=== PATIENT | male | born 1960 | race Caucasian/White ===

== ENCOUNTER 2020-04-03 08:04 | Outpatient (CLI) | payer BC, SELFPAY ==
--- NOTE | ~2020-04-03 | XR_ITS ---
EXAMINATION: XR barium swallow DATE: 04/03/2020 08:45 INDICATION: Dysphagia. TECHNIQUE: The patient drank thick barium, gas-producing crystals, and thin barium. Fluoroscopic spot radiographs of the hypopharynx and esophagus were obtained. Fluoroscopy exposure time was 2.4 minut es. A total of 1243 fluoroscopic images were recorded. COMPARISON: None. FINDINGS: The pharynx is symmetric and without evidence of mass lesion or mucosal irregularity. The e sophagus is normal without mass or stricture. Esophageal motility is normal. There is no hiatal herni a. There was no gastroesophageal reflux with provocative maneuvers. IMPRESSION: 1. Normal esophagram. Reviewed, dictated and finalized at location A. IMPRESSION: 1. Normal esophagram.
== END 2020-04-03 08:05 | disposition home or self-care (01) ==
PROVIDERS: PCP Family Medicine; Visit Provider Otolaryngology
DX: R13.10 Dysphagia, unspecified (principal)
CPT/HCPCS: 74220

== ENCOUNTER → 2020-06-08 13:05 | Outpatient (CLI) | payer BC, SELFPAY ==
--- NOTE | ~2020-06-08 | XR_ITS ---
EXAMINATION: XR abdomen/kub 1V EXAM DATE: 06/08/2020 13:24 INDICATION: Right flank pain for 3 days. History of kidney stones. 2 hernia repairs. TECHNIQUE: Frontal projection(s) of the abdomen for interpretation. There is no prior study for tracy sinclair. FINDINGS: There is expected amount of colonic stool and gas. No small bowel dilation, nonobstructiv e bowel gas pattern. Calcifications in the pelvis are believed to be phleboliths. No calcifications identified over the renal contours. There is no organomegaly suspected. Mild to moderate left hip osteoarthritis and lumbar spondylosis. Total right hip replacement hardware. Some abdominal wall mesh anchors. IMPRESSION: Unremarkable abdomen x-ray exam. Reviewed, dictated and finalized at location A.
== END ==
PROVIDERS: Visit Provider Nurse Practitioner Family
DX: R10.9 Unspecified abdominal pain (principal)
CPT/HCPCS: 74018

== ENCOUNTER 2021-07-03 07:18 | Outpatient (RCR) | payer BC, SELFPAY ==
--- NOTE | 2021-07-03 08:30 | PTOPEVAL ---
PHYSICAL THERAPY EVALUATION AND PLAN OF CARE Thank you for referring Celio Wagner Jr. to [facility].? The patient is scheduled to be seen for therapy? a follow-up in 5 weeks. Due to patient's work schedule he was not able to make more appointments at this time, but he was instructed to call if symptoms do no improve in 1-2 weeks or if he has any questions about HEP. Please review, sign, date and return this plan of care FRANKLIN. I agree with and certify that the following plan of care is medically necessary. Referring Physician Date Attending Provider: Adan Chaves MD Evaluation Outpatient Past Medical History Cardiovascular History Hx Hypercholesterolemia Yes Hx Hypertension Yes Respiratory History Hx Sleep Apnea Yes: cpap Gastrointestinal History Hx Gastroesophageal Reflux Disease Yes Hx Hernia Yes: umbilical 2014 Hx Polyps Yes: colon 2019 Musculoskeletal History Hx Back Pain Yes: lumbar stenosis Hx Joint Replacement Yes: right total hip 2012 Hx Other Musculoskeletal Disorders Yes: neck stenosis Endocrine History Hx Diabetes Yes: takes po meds HEENT History Hx Other HEENT Disorders Yes: swollen tonsils Integumentary History Hx Skin Disorders No Significant History Reproductive History Hx Reproductive Disorders No Significant History Psychosocial History Hx Anxiety Yes: takes med to quit smoking 10/2019 Hx Attention Deficit Disorder Yes: takes med to quit smoking 10/2019 Diagnosis left shoulder pain Onset 6 weeks ago Subjective Information no mechanism of injury. States Query Text:As Reported By Patient/ that pain just started at the Family top of the shoulder and wraps down to the shoulder blade. He does not know what he could have done to it. had an injection at his doctor's visit which seems to have helped. States that mornings are more stiff and loosens up throughout the day. Self Report Pain Assessment Left Shoulder(s) Reported Pain Level 2 Pain Description Aching,Sharp Pain Frequency Acute,Continuous Lowest Pain Intensity 1 Greatest Pain Intensity 6 Interventions Used Interventions Used By Clinicians Exercise Pain Relief Interventions Used By None Patient Gross Upper Extremity Range of Motion generally symmetrical to Comments contralateral side but left side is more sore Upper Extremity Muscle Strength Testi
--- NOTE | 2021-08-07 10:47 | PCPTNOTE ---
Patient did not show up for scheduled appointment this date.
--- NOTE | 2021-08-15 11:45 | PCPTNOTE ---
PHYSICAL THERAPY DISCHARGE NOTE Attending Provider: Adan Chaves MD Patient:Celio Wagner Jr. Date of :1960 Patient has not returned for any further treatments since 07/03/2021, therefore (he/she) will be discharged at this time. Patient?s initial visit was on 07/03/2021. Of note - on the day of his evaluation, Celio noted difficulty scheduling and therefore would make an appointment as needed. He did no show an appointment and we have not heard from him to make this up. Thank you for referring this patient to [facility]. Please review, sign, date and return this discharge summary FRANKLIN. I have been updated about the patient's current status and I agree with discharge from the above service at this time. Referring Physician Date
== END 2021-08-16 13:46 | disposition home or self-care (01) ==
LOC: ANHPT 07:18
PROVIDERS: PCP Family Medicine; Visit Provider Orthopaedic Surgery
DX: M75.82 Other shoulder lesions, left shoulder (principal)
CPT/HCPCS: 97110; 97161

== ENCOUNTER 2024-01-20 01:56 | Day surgery (SDC) | payer OTHER, SELFPAY ==
[2024-01-07 11:35] VITALS: BMI 36.9
--- NOTE | 2024-01-18 09:47 | SUR.PREOP ---
Patient called regarding upcoming procedure. Reviewed preop instructions, appointment times, and procedure prep.
[2024-01-20 07:17] VITALS: BP 148/81; PULSE 85; RESP 20; TEMP 36.2; O2SAT 100
[2024-01-20] MEDS: LACTATED RINGERS 1,000 ML 150 ML IV CONT (07:20)
[2024-01-20 07:26] LABS: Glucose Point of Care 107 mg/dl (65-105)
--- NOTE | 2024-01-20 08:12 | WPDANESEPPF ---
Anes - Initial Pre Proc Eval Procedure: Operation Date: 01/20/24 08:30 Proposed Procedures p Colonoscopy - Tomer Callejas MD Date/Time: 01/20/24 08:12 Surgeon: Tomer Callejas MD Pre Op Diagnosis: History colon polyps Patient Data Age: 63 Gender: M Height: 1.75 m Weight: 117.1 kg Last Vital Signs Temp 97.1 F L 01/20/24 07:17 Pulse 85 01/20/24 07:17 Resp 20 01/20/24 07:17 BP 148/81 H 01/20/24 07:17 Pulse Ox 100 01/20/24 07:17 O2 Del Method Room Air 01/20/24 07:17 Allergies Allergy/AdvReac Type Severity Reaction Status Date / Time adhesive tape Allergy Mild BLISTERS Verified 01/20/24 07:16 Rfaplya-LQS-CuO Reductase Allergy Unknown Cramping Verified 01/20/24 07:16 Inhibitor of the [Prtwhao-Kdj-Ipf Reductase Muscles Inhibitor] Home Medications Medication Instructions Recorded Confirmed Type ezetimibe 10 mg tablet (Zetia) 10 mg PO DAILY #90 tabs 08/01/23 01/20/24 Rx gabapentin 300 mg capsule 300 mg PO TID #270 caps 11/04/23 01/20/24 Rx nortriptyline 25 mg capsule 25 mg PO DAILY #90 caps 11/23/23 01/20/24 Rx omeprazole 40 mg capsule,delayed 40 mg PO DAILY #30 caps 12/17/23 01/20/24 Rx release fenofibrate 54 mg tablet 54 mg PO DAILY #90 tabs 12/20/23 01/20/24 Rx hydrochlorothiazide 25 mg tablet See Rx Instructions .Route 12/20/23 01/20/24 Rx .COMPLEX #90 tabs lisinopril 20 mg tablet See Rx Instructions .Route 12/20/23 01/20/24 Rx .COMPLEX #90 tabs metformin 500 mg tablet,extended 2,000 mg PO DAILY #360 tabs 12/20/23 01/20/24 Rx release 24 hr Laboratory Tests 01/20/24 07:20 POC Capillary Glucose 107 H mg/dl (65-105) Patient hx anesthesia problems: none Family hx anesthesia problems: none Results Review: All pre-operative results and documents have been reviewed as part of the pre-operative evaluation. [facility] Past Medical History Medical History (Updated 01/04/24 @ 17:31 by Oscar Sapp MD) Acute sinusitis Arthritis Arthritis of left hip BMI 37.0-37.9, adult BMI 38.0-38.9,adult GERD (gastroesophageal reflux disease) Hernia High cholesterol Hypertension Low back pain ERICA (obstructive sleep apnea) Pulmonary embolism Type 2 diabetes mellitus without complication, without long-term current use of insulin most recent A1C from 2019 was 5.8 Surgical History Surgical History History of right hip replacement 11-06-2012 Family History Family History Mother No problems noted. Father Malignant neoplasm of prostate Family history of coronary artery disease Arthritis Hypertension Heart disease Sibling Brain aneurysm Thyroid activity decreased Social History Social History Smoking packs per day: 1 Smoking cigarettes per day: 20.0 Years smoked: 40 Smoking pack-years: 40.00 Smoking status: Current every day smoker Tobacco type: cigarettes Second hand tobacco smoke exposure: No Additional smoking assessment comments: Pt is wanting to try quiting again. Has to quit for surgery. 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
--- NOTE | 2024-01-20 08:16 | PM.HPGS ---
History of Present Illness History of Present Illness Consent: Risks, benefits, and alternatives have been discussed and questions answered. Patient agrees to proceed with procedure. Chief complaint: History colon polyps Narrative: Celio Wagner Jr. is a 63 year old male with colon polyp in 2018 Review of Systems Constitutional: Constitutional: Denies headache(s) and Denies weakness Eyes: Eyes: Denies blurry vision ENT: Reports Normal hearing present, Denies headache(s) and Denies neck pain Cardiovascular: Cardiovascular: Denies chest pain and Denies dyspnea Respiratory: Respiratory: Denies dyspnea Gastrointestinal: Gastrointestinal: Reports no additional gastrointestinal complaints Genitourinary: Genitourinary: Denies dysuria Musculoskeletal: Musculoskeletal: Denies neck pain Integumentary/Breasts: Skin/Breast: Denies dry skin Neurologic: Reports Normal hearing present, Denies headache(s) and Denies weakness Psychiatric: Psychiatric: Denies anxiety Endocrine: Endocrine: Denies change in body appearance Hematologic/Lymphatic: Hematologic/Lymphatic: Denies easy bleeding Allergic/Immunologic: Allergic/Immunologic: Denies urticaria PMFSH Past Medical History Medical History (Updated 01/20/24 @ 08:17 by Tomer Callejas MD) Acute sinusitis Arthritis Arthritis of left hip BMI 37.0-37.9, adult BMI 38.0-38.9,adult Colon polyp GERD (gastroesophageal reflux disease) Hernia High cholesterol Hypertension Low back pain ERICA (obstructive sleep apnea) Pulmonary embolism Type 2 diabetes mellitus without complication, without long-term current use of insulin most recent A1C from 2019 was 5.8 Surgical History Surgical History History of right hip replacement 11-06-2012 Family History Family History Mother No problems noted. Father Malignant neoplasm of prostate Family history of coronary artery disease Arthritis Hypertension Heart disease Sibling Brain aneurysm Thyroid activity decreased Social History Social History Smoking packs per day: 1 Smoking cigarettes per day: 20.0 Years smoked: 40 Smoking pack-years: 40.00 Smoking status: Current every day smoker Tobacco type: cigarettes Second hand tobacco smoke exposure: No Additional smoking assessment comments: Pt is wanting to try quiting again. Has to quit for surgery. Alcohol intake: current Substance use: never Substance use type: does not use Do You Feel Safe in your Home?: Yes Lack of Transportation: No Lack of Food: Never True Current Housing: I Have Housing Concerned About Future Housing: No Difficulty Paying Gas/Electric Bills: No Difficulty Paying for Meds: No Currently Unemployed: No Education: High School Diploma/GED Difficulty w/ Childcare or Family Care: No Living arrangements: with family Occupation/Education: occupation Additional occupation/education comments: [employer] Paper [employer] Gender identity (if verbalized by the patient): Male Spiritual care concerns: No Meds Home Medications and Allergies Home Medications Medication Instructions Recorded Confirmed Type ezetimibe 10 mg tablet (Zetia) 10 mg PO DAILY #90 tabs 08/01/23 01/20/24 Rx gabapentin 300 mg capsule 300 mg PO TID #270 caps 11/04/23 01/20/24 Rx nortriptyline 25 mg capsule 25 mg PO DAILY #90 caps 11/23/23 01/20/24 Rx omeprazole 40 mg capsule,delayed 40 mg PO DAILY #30 caps 12/17/23 01/20/24 Rx release fenofibrate 54 mg tablet 54 mg PO DAILY #90 tabs 12/20/23 01/20/24 Rx hydrochlorothiazide 25 mg tablet See Rx Instructions .Route 12/20/23 01/20/24 Rx .COMPLEX #90 tabs lisinopril 20 mg tablet See Rx Instructions .Route 12/20/23 01/20/24 Rx .COMPLEX #90 tabs metformin 500 mg tab
[2024-01-20 08:45] VITALS: BP 126/86; PULSE 97; RESP 24; O2SAT 100
[2024-01-20 08:55] VITALS: BP 118/69; PULSE 84; RESP 24; O2SAT 99
[2024-01-20 09:05] VITALS: BP 136/83; PULSE 80; RESP 19; O2SAT 100
== END 2024-01-20 09:10 | disposition home or self-care (01) ==
PROVIDERS: PCP Family Medicine; Visit Provider Internal Medicine Gastroenterology
PROC: 0DJD8ZZ Inspection of Lower Intestinal Tract, Via Natural or Artificial Opening Endoscopic (ICD-10-PCS; CPT 45378; principal; 2024-01-20 08:30)
DX: Z12.11 Encounter for screening for malignant neoplasm of colon (principal); D12.0 Benign neoplasm of cecum; D12.3 Benign neoplasm of transverse colon; K57.30 Diverticulosis of large intestine without perforation or abscess without bleeding; K64.8 Other hemorrhoids; K21.9 Gastro-esophageal reflux disease without esophagitis; E78.00 Pure hypercholesterolemia, unspecified; I10 Essential (primary) hypertension; E11.9 Type 2 diabetes mellitus without complications; G47.33 Obstructive sleep apnea (adult) (pediatric); Z86.711 Personal history of pulmonary embolism; Z79.84 Long term (current) use of oral hypoglycemic drugs; F17.210 Nicotine dependence, cigarettes, uncomplicated
CPT/HCPCS: 45385; 82948; 88305; J2001; J2704; J7120

== ENCOUNTER 2024-08-09 07:29 | Outpatient (CLI) | payer BC, SELFPAY ==
--- NOTE | 2024-08-09 07:37 | ECG_ITS ---
Test Date: 2024-08-09 08:00:41 Measurements Intervals [place] Rate: 89 P: 63 SC: 155 QRS: 50 QRSD: 96 T: 43 QT: 333 QTc: 407 Interpretive Statements SINUS RHYTHM NORMAL ECG No previous ECG available for comparison Electronically Signed On 08-09-2024 09:50:35 CDT by Ronak Lay D.O.
--- NOTE | 2024-08-09 07:37 | ECHO_ITS ---
Patient Info Name: Celio Wagner Age: 64 years : 1960 Gender: Male Ht: 70 in Wt: 270 lbs BSA: 2.51 m2 HR: 84 bpm BP: 136 / 82 mmHg Technical Quality: Fair Exam Date: 08/09/2024 7:52 AM Exam Location: Echo Lab Patient Status: Outpatient Admit Date: 08/09/2024 Staff Ordering Physician: Sandra Rust APRN Forest Logistics Manager: Naya Pascal RDCS Attending Provider: Sandra Rust APRN Referring Physician: Barrera DUQUE; Exam Type: CA echo dop color flow w con Study Info Indications E66.01 - Morbid (severe) obesity due to excess calories Complete two-dimensional, color flow and Doppler transthoracic echocardiogram is performed. Contrast/Agitated Saline Contrast/Ag. Saline: Definity Amount: 2.00 ml Administered By: Naya Pascal RDCS New IV Access: Antecubital Space and Left Site Condition: No extravasation, Site dressing applied and IV removed Summary 1. Complete two-dimensional, color flow and Doppler transthoracic echocardiogram is performed. 2. Definity contrast administered improved wall motion interpretation. 3. Left ventricular chamber dimension is normal. 4. Left ventricular systolic function is normal, estimated at 60-65%. 5. The left ventricular diastolic function is grade I diastolic dysfunction. 6. E/e' 9 is minimally elevated. 7. There is mild aortic valve sclerosis. 8. The mitral valve has moderately calcified annulus. 9. No pulmonary hypertension, estimated pulmonary arterial systolic pressure is 22 mmHg. Left Ventricle E/e' 9 is minimally elevated. Definity contrast administered improved wall motion interpretation. Left ventricular chamber dimension is normal. Left ventricular systolic function is normal, estimated at 60-65%. The left ventricular diastolic function is grade I diastolic dysfunction. Right Ventricle Right ventricular chamber dimension is normal. Right ventricular systolic function is normal. Left Atria Left atrial chamber dimension is normal. Right Atria Right atrial chamber dimension is normal. Aortic Valve The aortic valve is trileaflet. There is mild aortic valve sclerosis. There is no aortic valve stenosis. There is no aortic valve regurgitation. Pulmonic Valve There is no pulmonic regurgitation. Mitral Valve The mitral valve has moderately calcified annulus. There is no mitral valve stenosis. There is no mitral valve regurgitation. Tricuspid Valve There is no tricuspid valve regurgitation. No pulmonary hypertension, estimated pulmonary arterial systolic pressure is 22 mmHg. Pericardium/Pleural There is no pericardial effusion. Inferior Vena Cava Normal inferior vena cava with >50% collapse upon inspiration consistent with normal right atrial pressure, 5 mmHg. Aorta The aortic root size at the sinus of Valsalva is normal. Left Ventricular Outflow Tract Name Value Normal LVOT 2D LVOT Diameter 1.89 cm LVOT Doppler LVOT Peak Gradient 4 mmHg LVOT Mean Gradient 3 mmHg LVOT VTI 16.73 cm LVOT VTI/AV VTI Ratio 0.73 LVOT Stroke Volume 46.69 ml
[2024-08-09] MEDS: PERFLUTREN LIPID MICROSPHERES 1.5 ML VIAL DILUTED TO 10 ML TOTAL VOLUME IV PUSH (08:35)
--- NOTE | 2024-08-09 09:08 | IVDEFINITY ---
Prior to administration of IV Definity the patient was educated on the risks and benefits of the imaging enhancing agent including potential adverse side effects. The patient verbalized understanding. Allergies were verified. No exclusion criteria were identified and at least one of the following inclusion criteria were met: 1) physician request, 2) patient technically difficult to image (per the [place] [employer]ocardi[employer] guidelines of two or more segments not discernable within the apical view), or 3) questionable left ventricular function. ?
== END 2024-08-09 07:30 | disposition home or self-care (01) ==
PROVIDERS: PCP Family Medicine; Visit Provider Nurse Practitioner Adult Health
DX: E66.01 Morbid (severe) obesity due to excess calories (principal); E78.2 Mixed hyperlipidemia; Z72.0 Tobacco use
CPT/HCPCS: 93005; C8929; Q9957